=== PATIENT | female | born 1955 | race Two or more races ===

== ENCOUNTER 2017-06-29 09:07 | Emergency (ER) | payer MEDICAID ==
[~2017-06-29] VITALS: Ht 160 cm; Wt 59.4 kg
[2017-06-29 09:31] VITALS: BP 163/86
[2017-06-29] MEDS ORDERED: AMOXICILLIN500 MG ORAL (09:33)
[2017-06-29] MEDS ORDERED: CLARITIN-D 241 EACH PO (09:33)
[2017-06-29 09:50] VITALS: BP 154/86
--- NOTE | 2017-07-01 14:23 | Emergency Room Report ---
History of Present Illness General Chief Complaint: Headache Source: Patient Present Illness HPI Patient is a 61-year-old female presented after increased headache and nasal discharge. Patient reported increased sinus pressure she reported having worsening facial pain with movement. She denied current fever. As reported having yellow-green discharge from her nasal passages as well as from other locations. Allergies: Coded Allergies: No Known Allergies (Unverified , 06/29/17) Patient History Past Medical History: see triage record Reviewed Nursing Documentation: PMH: Agreed, PSxH: Agreed Nursing Documentation-PMH Past Medical History: No History, Except For Review of Systems All Other Systems: negative except mentioned in HPI Physical Exam Vital Signs Date Time Temp Pulse Resp B/P (MAP) Pulse Ox O2 Delivery O2 Flow Rate FiO2 06/29/17 09:18 97.8 77 18 163/86 99 Room Air 97.9 General Appearance: well appearing, no apparent distress, alert, GCS 15 Head: normocephalic, atraumatic ENT: hearing grossly normal, normal voice, other - facial tenderness, yellow green nasal discharge Neck: full range of motion, supple Respiratory: no respiratory distress, speaking full sentences Gastrointestinal: normal inspection, normal bowel sounds, non tender Musculoskeletal: normal inspection, back normal, no calf tenderness Neurologic: normal inspection, alert, oriented x3, normal gait Psychiatric: mood/affect normal Skin: no rash Medical Decision Making Diagnostic Impression: Primary Impression: Sinusitis ER Course Patient presented for headache. Differential diagnoses included but was not limited to skull fracture, subarachnoid hemorrhage, meningitis, aneurysm, mass lesion, sinusitis, intracranial hemorrhage. Patient has a benign exam and does not appear to require any further imaging or laboratory testing at this time. The patient presented with a sinus infection. Patient noted have purulent nasal discharge consistent with bacterial sinusitis. She she will be treated with oral antibiotics. The patient is advised to follow up with primary care doctor in 1-2 days. Patient is advised to return if any worsening condition or if any changes in status that are concerning. This report is dictated with [employer] supervisor roving software which may occasionally lead to discrepancies related to use of this software. Last Vital Signs Date Time Temp Pulse Resp B/P (MAP) Pulse Ox O2 Delivery O2 Flow Rate FiO2 06/29/17 09:50 97.9 89 18 154/86 99 Room Air 97.9 Status: improved Disposition: HOME, SELF-CARE Condition: Stable Scripts Amoxicillin* (AMOXIL*) 500 Mg Capsule 500 MG ORAL EVERY 8 HOURS, #30 CAP Prov: Marin Eden 06/29/17 Loratadine/Pseudoephedrine (CLARITIN-D 24 HOUR TABLET) 1 Each Tab.er.24h 1 TAB PO DAILY, #14 TAB Prov: Marin Eden 06/29/17 Referrals: NOT CHOSEN IPA/MD,REFERRING (PCP) Patient Instructions: Sinus Headache Marin Eden Jul 01, 2017 14:23
== END 2017-06-29 09:52 | disposition home or self-care (01) ==
LOC: EMR 09:31
DX: J32.9 Chronic sinusitis, unspecified (principal); R51 Headache
CPT/HCPCS: 99283

== ENCOUNTER → 2017-08-24 | Emergency (ER) | payer MEDICAID ==
[~2017-08-24] VITALS: Ht 160 cm; Wt 57.2 kg
[~2017-08-24] MED LIST: AMOXICILLIN500 MG ORAL; CLARITIN-D 241 EACH PO; NKM
[2017-08-24 14:08] VITALS: BP 134/86
== END | disposition left against medical advice (07) ==
LOC: EMR 14:57
DX: M54.5 Low back pain (principal)
CPT/HCPCS: 99284

== ENCOUNTER 2017-09-29 16:46 | Emergency (ER) | payer MEDICAID ==
[~2017-09-29] VITALS: Ht 160 cm; Wt 49.9 kg
[2017-09-29 17:10] VITALS: BP 141/86
--- NOTE | 2017-09-29 17:42 | Emergency Room Report ---
History of Present Illness General Chief Complaint: General Complaint Source: Patient Present Illness HPI 62 YO Female c/o Moderate nasal congestion with purulent nasal drainage 3 days. Patient reports frequent sinusitis infections. pt. also reports 6/10 in severity Left ear pain with blood on q-tip this morning. She denies ear discharge otherwise. She denies cough, sore throat or chills. Patient states she has not seen an ENT specialist. Patient reports some tenderness to the left side of her face and she feels that it has progressed to her left ear. Reports subjective fevers. Denies CP, Palpitations, LOC, AMS, dizziness, Changes in Vision, Sensation or a sudden severe headache. Allergies: Coded Allergies: No Known Allergies (Unverified , 06/29/17) Patient History Past Medical History: see triage record Past Surgical History: none Pertinent Family History: none Reviewed Nursing Documentation: PMH: Agreed; PSxH: Agreed Nursing Documentation-PMH Past Medical History: No History, Except For Review of Systems All Other Systems: negative except mentioned in HPI Physical Exam Vital Signs Date Time Temp Pulse Resp B/P (MAP) Pulse Ox O2 Delivery O2 Flow Rate FiO2 09/29/17 16:54 98.0 68 18 141/86 97 Room Air 98.1 Sp02 EP Interpretation: reviewed, normal General Appearance: no apparent distress, alert, GCS 15, non-toxic Head: normocephalic, atraumatic Eyes: bilateral eye normal inspection, bilateral eye PERRL ENT: hearing grossly normal, normal pharynx, normal voice, uvula midline, nasal congestion, other - Left OM erythematous and bulging, TTP to left maxilarry sinus area, and some frontal. Clear rhinorrhea noted with swollen turbinates. Neck: full range of motion Respiratory: chest non-tender, lungs clear, normal breath sounds, speaking full sentences Cardiovascular #1: regular rate, rhythm Rectal: deferred Genitourinary: normal inspection Musculoskeletal: back normal, gait/station normal, normal range of motion, non- tender Neurologic: alert, oriented x3, responsive, motor strength/tone normal, sensory intact, speech normal, grossly normal Psychiatric: judgement/insight normal Skin: normal color, no rash, warm/dry, well hydrated Lymphatic: no adenopathy Medical Decision Making PA Attestation Dr. angel is my supervising Physician whom patient management has been discussed with. Diagnostic Impression: Primary Impression: Otitis media Qualified Codes: H66.92 - Otitis media, unspecified, left ear Additional Impression: Nasal congestion with rhinorrhea ER Course 62 YO Female c/o Moderate nasal congestion with purulent nasal drainage 3 days. Patient reports frequent sinusitis infections. pt. also reports 6/10 in severity Left ear pain with blood on q-tip this morning. She denies ear discharge otherwise. She denies cough, sore throat or chills. Patient states she has not seen an ENT specialist. Patient reports some tenderness to the left side of her face and she feels that it has progressed to her left ear. Reports subjective fevers. Denies CP, Palpitations, LOC, AMS, dizziness, Changes in Vision, Sensation or a sudden severe headache. Ddx considered but are not limited to OM, OE, mastoiditis, TM perforation, FB, sinusitis Vital signs: are WNL, pt. is afebrile H&PE are most consistent with otitis media ORDERS: none required at this time, the diagnosis is clinical -OTOSCOPY: Left OM erythematous and bulging. ED INTERVENTIONS: None required at this time. DISCHARGE: At this time pt. is stable for d/c to home. With PO ABX. Will provide printed patient care instructions, and any necessary prescriptions. Care plan and follow up instructions have been discussed with the patient prior to discharge. Last Vital Signs Date Time Temp Pulse Resp B/P (MAP) Pulse Ox O2 Delivery O2 Flow Rate FiO2 09/29/17 17:10 98.1 78 18 141/86 97 Room Air 98.1 Disposition: HOME, SELF-CARE Condition: Stable Scripts Loratadine (CLARITIN) 10 Mg Capsule 10 MG ORAL DAILY, #10 CAP Prov: Janet Parsons 09/29/17 Oxymetazoline Hcl* (AFRIN*) 15 Ml Mist 2 SPRAYS NASAL TWICE A DAY, #15 ML 0 Refills DO NOT USE FOR MORE THAN 3 CONSECUTIVE DAYS. Prov: Janet Parsons 09/29/17 Amoxicillin/Potassium Clav 875-125* (AUGMENTIN 875-125 TABLET*) 1 Each Tablet 1 TAB ORAL TWICE A DAY for 7 Days, #14 TAB Prov: Janet Parsons 09/29/17 Patient Instructions: Otitis Media, Adult, [id number] Additional Instructions: Take medications as directed. Follow up with an ENT even if your symptoms have resolved. --Please review list of primary care clinics, if you do not already have a primary care provider Return sooner to ED if new symptoms occur, or current symptoms become worse. - Please note that this Emergency Department Report was dictated using [employer] coordinator technology software, occasionally this can lead to erroneous entry secondary to interpretation by the dictation equipment. Janet Parsons September 29, 2017 17:42
[2017-09-29] MEDS ORDERED: AFRIN15 ML NASAL (17:44)
[2017-09-29] MEDS ORDERED: AUGMENTIN 875-1 EAC1 ORAL (17:44)
[2017-09-29] MEDS ORDERED: CLARITIN10 M2 ORAL (17:44)
[2017-09-29 18:34] VITALS: BP 141/86
== END 2017-09-29 18:37 | disposition home or self-care (01) ==
LOC: EMR 17:46
DX: H66.92 Otitis media, unspecified, left ear (principal); R09.81 Nasal congestion; J34.89 Other specified disorders of nose and nasal sinuses
CPT/HCPCS: 99284

== ENCOUNTER 2018-02-25 11:42 | Emergency (ER) | payer MEDICAID ==
[~2018-02-25] VITALS: Ht 160 cm; Wt 54.4 kg
[~2018-02-25 11:42] MED LIST changes: +AFRIN15 ML NASAL; +AUGMENTIN 875-1 EAC1 ORAL; +CLARITIN10 M2 ORAL
[2018-02-25 11:57] VITALS: BP 113/93
--- NOTE | 2018-02-25 12:09 | Emergency Room Report ---
History of Present Illness General Chief Complaint: General Complaint Source: Patient Present Illness HPI Patient presents with complaints of dizziness Patient reports that she has had vertigo before this is fairly similar to those episodes She is prone to bladder infections the patient reports also was having foul- smelling urine Denies any chest pain denies any palpitations denies any vomiting or diarrhea Allergies: Coded Allergies: No Known Allergies (Unverified , 06/29/17) Patient History Past Medical History: see triage record Pertinent Family History: none Reviewed Nursing Documentation: PMH: Agreed; PSxH: Agreed Nursing Documentation-PMH Past Medical History: No History, Except For History Of Psychiatric Problem: Yes - depression Review of Systems All Other Systems: negative except mentioned in HPI Physical Exam Vital Signs Date Time Temp Pulse Resp B/P (MAP) Pulse Ox O2 Delivery O2 Flow Rate FiO2 02/25/18 11:50 98.2 68 16 112/66 98 Room Air 98.2 Sp02 EP Interpretation: reviewed, normal General Appearance: well appearing, no apparent distress Head: normocephalic, atraumatic Eyes: bilateral eye PERRL, bilateral eye EOMI ENT: hearing grossly normal, normal pharynx, TMs + canals normal, uvula midline Neck: full range of motion, supple, no meningismus, no bony tend Respiratory: lungs clear, normal breath sounds, no rhonchi, no respiratory distress, no retraction, no accessory muscle use Cardiovascular #1: normal peripheral pulses, regular rate, rhythm, no edema, no gallop, no JVD, no murmur Gastrointestinal: normal bowel sounds, non tender, soft, no mass, no organomegaly, non-distended, no guarding, no hernia, no pulsatile mass, no rebound Genitourinary: no CVA tenderness Musculoskeletal: normal inspection Neurologic: oriented x3, responsive, cutter apprentice hand III-XII nml as tested, motor strength/ tone normal, sensory intact Psychiatric: mood/affect normal Skin: normal color, no rash, warm/dry, palpation normal Lymphatic: normal inspection, no adenopathy Medical Decision Making Diagnostic Impression: Primary Impression: Dizziness Additional Impression: UTI (urinary tract infection) ER Course Patient presents with complaints consistent with likely bladder infection however given some of the dizziness baseline blood work was also initiated Patient's hemoglobin is normal electrolytes appropriate patient does have evidence of UTI on laboratory examination Patient is provided with appropriate medication and will have initial conservative outpatient trial At this time patient does not meet emergency criteria for head imaging Labs Test 02/25/18 12:05 02/25/18 12:16 Urine Color Yellow Urine Appearance Slightly cloudy Urine pH 5 (4.5-8.0) Urine Specific [place] 1.025 (1.005-1.035) Urine Protein 1+ (NEGATIVE) Urine Glucose (UA) Negative (NEGATIVE) Urine Ketones Negative (NEGATIVE) Urine Blood 1+ (NEGATIVE) Urine Nitrite Negative (NEGATIVE) Urine Bilirubin Negative (NEGATIVE) Urine Urobilinogen Normal MG/DL (0.0-1.0) Urine Leukocyte Esterase 3+ (NEGATIVE) Urine RBC 0-2 /HPF (0 - 2) Urine WBC 10-15 /HPF (0 - 2) Urine Squamous Epithelial Cells Occasional /LPF Urine Bacteria Moderate /HPF (NONE) White Blood Count 7.0 K/UL (4.8-10.8) Red Blood Count 4.98 M/UL (4.20-5.40) Hemoglobin 14.8 G/DL (12.0-16.0) Hematocrit 44.5 % (37.0-47.0) Mean Corpuscular Volume 89 FL (80-99) Mean Corpuscular Hemoglobin 29.7 PG (27.0-31.0) Mean Corpuscular Hemoglobin Concent 33.3 G/DL (32.0-36.0) Red Cell Distribution Width 11.3 % (11.6-14.8) Platelet Count 282 K/UL (150-450) Mean Platelet Volume 7.8 FL (6.5-10.1) Neutrophils (%) (Auto) 63.7 % (45.0-75.0) Lymphocytes (%) (Auto) 26.8 % (20.0-45.0) Monocytes (%) (Auto) 6.5 % (1.0-10.0) Eosinophils (%) (Auto) 2.3 % (0.0-3.0) Basophils (%) (Auto) 0.8 % (0.0-2.0) Sodium Level 142 MMOL/L (136-145) Potassium Level 3.6 MMOL/L (3.5-5.1) Chloride Level 107 MMOL/L (98-107) Carbon Dioxide Level 25 MMOL/L (21-32) Anion Gap 10 mmol/L (5-15) Blood Urea Nitrogen 15 mg/dL (7-18) Creatinine 0.8 MG/DL (0.55-1.30) Estimat Glomerular Filtration Rate > 60 mL/min (>60) Glucose Level 125 MG/DL (74-106) Calcium Level 8.9 MG/DL (8.5-10.1) Last Vital Signs Date Time Temp Pulse Resp B/P (MAP) Pulse Ox O2 Delivery O2 Flow Rate FiO2 02/25/18 11:50 98.2 68 16 112/66 98 Room Air 98.2 Status: improved Disposition: HOME, SELF-CARE Condition: Improved Scripts Meclizine Hcl* (MECLIZINE*) 25 Mg Tablet 25 MG ORAL THREE TIMES A DAY for 7 Days, TAB Prov: Amandeep Lou DO 02/25/18 Phenazopyridine Hcl* (PYRIDIUM*) 100 Mg Tablet 100 MG ORAL THREE TIMES A DAY for 3 Days, TAB Prov: Amandeep Lou DO 02/25/18 Nitrofurantoin Monohyd/M-Cryst* (MACROBID 100 MG*) 100 Mg Capsule 100 MG ORAL EVERY 12 HOURS for 7 Days, CAP Prov: Amandeep Lou DO 02/25/18 Additional Instructions: Patient is provided with the discharge instructions notified to follow up with primary doctor in the next 2-3 days otherwise return to the er with any worsening symptoms. Please note that this report is being documented using [employer] technology. This can lead to erroneous entry secondary to incorrect interpretation by the dictating instrument. Amandeep Lou DO Feb 25, 2018 12:09
[2018-02-25 12:28] VITALS: BP 129/67
[2018-02-25 12:33] LABS: BASOPHILS % (AUTO) 0.8 % (0.0-2.0); EOSINOPHILS % (AUTO) 2.3 % (0.0-3.0); HEMATOCRIT 44.5 % (37.0-47.0); HEMOGLOBIN 14.8 G/DL (12.0-16.0); LYMPHOCYTES % (AUTO) 26.8 % (20.0-45.0); MEAN CORPUSCULAR VOLUME 89 FL (80-99); MONOCYTES % (AUTO) 6.5 % (1.0-10.0); NEUTROPHILS % (AUTO) 63.7 % (45.0-75.0); PLATELET COUNT 282 K/UL (150-450); RED BLOOD COUNT 4.98 M/UL (4.20-5.40); RED CELL DISTRIBUTION WIDTH 11.3 % (11.6-14.8)
[2018-02-25 12:34] LABS: BILIRUBIN, URINE NEGATIVE (NEGATIVE); GLUCOSE, URINE (UA) NEGATIVE (NEGATIVE); KETONES,URINE NEGATIVE (NEGATIVE); LEUKOCYTE ESTERASE ,URINE 3+ (NEGATIVE); NITRITE,URINE NEGATIVE (NEGATIVE); PH,URINE 5 (4.5-8.0); PROTEIN,URINE 1+ (NEGATIVE); UROBILINOGEN,URINE NORMAL MG/DL (0.0-1.0)
[2018-02-25 12:35] LABS: COLOR,URINE YELLOW
[2018-02-25 12:36] LABS: APPEARANCE,URINE SLIGHTLY CLOUDY
[2018-02-25 12:38] LABS: ANION GAP 10 mmol/L (5-15); BLOOD UREA NITROGEN 15 mg/dL (7-18); CALCIUM 8.9 MG/DL (8.5-10.1); CARBON DIOXIDE 25 MMOL/L (21-32); CHLORIDE 107 MMOL/L (98-107); CREATININE 0.8 MG/DL (0.55-1.30); POTASSIUM 3.6 MMOL/L (3.5-5.1); SODIUM 142 MMOL/L (136-145)
[2018-02-25 12:43] LABS: ALANINE AMINOTRANSFERASE 22 U/L (12-78); ALBUMIN 3.5 G/DL (3.4-5.0); ALKALINE PHOSPHATASE 71 U/L (46-116); ASPARTATE AMINO TRANSFERASE 14 U/L (15-37); BILIRUBIN,TOTAL 0.5 MG/DL (0.2-1.0)
[2018-02-25] MEDS ORDERED: MECLIZINE HCL25 MG ORAL (12:51)
[2018-02-25] MEDS ORDERED: PHENAZOPYRIDIN100 MG ORAL (12:51)
[2018-02-25] MEDS ORDERED: NITROFURANTOIN100 M2 ORAL (12:51)
[2018-02-25 13:19] VITALS: BP 122/88
== END 2018-02-25 13:19 | disposition home or self-care (01) ==
LOC: EMR 12:22
DX: N39.0 Urinary tract infection, site not specified (principal); R42 Dizziness and giddiness
CPT/HCPCS: 36415; 80053; 80307; 81003; 85025; 87086; 99284

== ENCOUNTER 2018-05-22 12:01 | Emergency (ER) | payer MEDICAID ==
[~2018-05-22] VITALS: Ht 160 cm; Wt 59.0 kg
[~2018-05-22 12:01] MED LIST changes: +MECLIZINE HCL25 MG ORAL; +NITROFURANTOIN100 M2 ORAL; +PHENAZOPYRIDIN100 MG ORAL
[2018-05-22 12:16] VITALS: BP 145/77
[2018-05-22 12:28] LABS: APPEARANCE,URINE CLEAR; BILIRUBIN, URINE NEGATIVE (NEGATIVE); GLUCOSE, URINE (UA) NEGATIVE (NEGATIVE); KETONES,URINE 1+ (NEGATIVE); LEUKOCYTE ESTERASE ,URINE 3+ (NEGATIVE); NITRITE,URINE NEGATIVE (NEGATIVE); PH,URINE 5 (4.5-8.0); PROTEIN,URINE 1+ (NEGATIVE); UROBILINOGEN,URINE NORMAL MG/DL (0.0-1.0)
[2018-05-22] MEDS ORDERED: Phenazopyridine 200mg tab ORAL ONE (12:30)
[2018-05-22 12:42] LABS: COLOR,URINE YELLOW
[2018-05-22 12:47] LABS: EOSINOPHILS % (AUTO) 1.4 % (0.0-3.0); HEMATOCRIT 45.3 % (37.0-47.0); LYMPHOCYTES % (AUTO) 26.9 % (20.0-45.0); MEAN CORPUSCULAR VOLUME 91 FL (80-99); MONOCYTES % (AUTO) 7.9 % (1.0-10.0); NEUTROPHILS % (AUTO) 62.8 % (45.0-75.0); PLATELET COUNT 296 K/UL (150-450); RED BLOOD COUNT 4.97 M/UL (4.20-5.40); RED CELL DISTRIBUTION WIDTH 11.8 % (11.6-14.8); WHITE BLOOD COUNT 6.8 K/UL (4.8-10.8)
--- NOTE | 2018-05-22 13:11 | Emergency Room Report ---
History of Present Illness General Chief Complaint: Female Urogenital Problems Source: Patient Present Illness HPI 62-year-old female presents to the emergency department complaining of 10 out of 10 in severity dysuria as well as urinary frequency. Patient reports also that she has had sinus congestion times one week with intermittent episodes of some dizziness. Patient denies dizziness today. Patient denies nausea, vomiting, fevers, chills, neck pain or stiffness. Patient denies trauma or fall. She denies abdominal pain or tenderness. Allergies: Coded Allergies: No Known Allergies (Unverified , 05/22/18) Patient History Past Medical History: see triage record Past Surgical History: none Pertinent Family History: none Reviewed Nursing Documentation: PMH: Agreed; PSxH: Agreed Nursing Documentation-PMH Past Medical History: No Stated History Review of Systems All Other Systems: negative except mentioned in HPI Physical Exam Vital Signs Date Time Temp Pulse Resp B/P (MAP) Pulse Ox O2 Delivery O2 Flow Rate FiO2 05/22/18 12:05 98.2 75 16 144/87 99 Room Air Sp02 EP Interpretation: reviewed, normal General Appearance: no apparent distress, alert, GCS 15, non-toxic Head: normocephalic, atraumatic Eyes: bilateral eye normal inspection, bilateral eye PERRL ENT: hearing grossly normal, normal voice, TMs + canals normal, uvula midline, moist mucus membranes, nasal congestion Neck: full range of motion Respiratory: chest non-tender, lungs clear, normal breath sounds, speaking full sentences Cardiovascular #1: regular rate, rhythm Gastrointestinal: normal bowel sounds, non tender, soft, non-distended Rectal: deferred Genitourinary: normal inspection, no CVA tenderness Musculoskeletal: back normal, gait/station normal, normal range of motion, non- tender Neurologic: alert, oriented x3, responsive, motor strength/tone normal, sensory intact, normal gait, speech normal, no pronator, other - no nystagmus or ataxia, grossly normal Psychiatric: judgement/insight normal Skin: normal color, no rash, warm/dry, well hydrated Medical Decision Making PA Attestation Dr. angel is my supervising Physician whom patient management has been discussed with. Diagnostic Impression: Primary Impression: UTI (urinary tract infection) Qualified Codes: N30.01 - Acute cystitis with hematuria Additional Impression: Sinusitis Qualified Codes: J32.1 - Chronic frontal sinusitis ER Course 62-year-old female presents to the emergency department complaining of 10 out of 10 in severity dysuria as well as urinary frequency. Patient reports also that she has had sinus congestion times one week with intermittent episodes of some dizziness. Patient denies dizziness today. Patient denies nausea, vomiting, fevers, chills, neck pain or stiffness. Patient denies trauma or fall. She denies abdominal pain or tenderness. Ddx considered but are not limited to UTi , Pyelo, STI, Stone, Cystitis, sinusitis, vertigo, cardiac etiology, CVA just to name a few. Vital signs: are WNL, pt. is afebrile H&PE are most consistent with UTI -No focal neurological deficits, no dizziness at this time. ORDERS: - UA labs are attached ---Evidence of infection. ED INTERVENTIONS: None required at this time. DISCHARGE: At this time pt. is stable for d/c to home. Will provide printed patient care instructions, and any necessary prescriptions. Care plan and follow up instructions have been discussed with the patient prior to discharge. Labs Test 05/22/18 12:10 05/22/18 12:35 Urine Color Yellow Urine Appearance Clear Urine pH 5 (4.5-8.0) Urine Specific [place] 1.025 (1.005-1.035) Urine Protein 1+ (NEGATIVE) Urine Glucose (UA) Negative (NEGATIVE) Urine Ketones 1+ (NEGATIVE) Urine Blood 2+ (NEGATIVE) Urine Nitrite Negative (NEGATIVE) Urine Bilirubin Negative (NEGATIVE) Urine Urobilinogen Normal MG/DL (0.0-1.0) Urine Leukocyte Esterase 3+ (NEGATIVE) Urine RBC 5-10 /HPF (0 - 2) Urine WBC 15-20 /HPF (0 - 2) Urine Squamous Epithelial Cells Few /LPF (NONE/OCC) Urine Bacteria Moderate /HPF (NONE) White Blood Count 6.8 K/UL (4.8-10.8) Red Blood Count 4.97 M/UL (4.20-5.40) Hemoglobin 15.0 G/DL (12.0-16.0) Hematocrit 45.3 % (37.0-47.0) Mean Corpuscular Volume 91 FL (80-99) Mean Corpuscular Hemoglobin 30.1 PG (27.0-31.0) Mean Corpuscular Hemoglobin Concent 33.0 G/DL (32.0-36.0) Red Cell Distribution Width 11.8 % (11.6-14.8) Platelet Count 296 K/UL (150-450) Mean Platelet Volume 7.9 FL (6.5-10.1) Neutrophils (%) (Auto) 62.8 % (45.0-75.0) Lymphocytes (%) (Auto) 26.9 % (20.0-45.0) Monocytes (%) (Auto) 7.9 % (1.0-10.0) Eosinophils (%) (Auto) 1.4 % (0.0-3.0) Basophils (%) (Auto) 1.0 % (0.0-2.0) Sodium Level 139 MMOL/L (136-145) Potassium Level 3.6 MMOL/L (3.5-5.1) Chloride Level 105 MMOL/L (98-107) Carbon Dioxide Level 27 MMOL/L (21-32) Anion Gap 8 mmol/L (5-15) Blood Urea Nitrogen 16 mg/dL (7-18) Creatinine 0.9 MG/DL (0.55-1.30) Estimat Glomerular Filtration Rate > 60 mL/min (>60) Glucose Level 104 MG/DL (74-106) Calcium Level 9.5 MG/DL (8.5-10.1) Total Bilirubin 0.5 MG/DL (0.2-1.0) Aspartate Amino Transf (AST/SGOT) 14 U/L (15-37) Alanine Aminotransferase (ALT/SGPT) 23 U/L (12-78) Alkaline Phosphatase 70 U/L (46-116) Total Protein 7.6 G/DL (6.4-8.2) Albumin 3.9 G/DL (3.4-5.0) Globulin 3.7 g/dL Albumin/Globulin Ratio 1.1 (1.0-2.7) Last Vital Signs Date Time Temp Pulse Resp B/P (MAP) Pulse Ox O2 Delivery O2 Flow Rate FiO2 05/22/18 12:16 98.2 65 14 145/77 98 Room Air Disposition: HOME, SELF-CARE Condition: Stable Scripts Fluticasone Propionate (Fluticasone Propionate) 16 Gm [place].susp 1 SPRAY NASAL TWICE A DAY, #16 EA per nostril Prov: Janet Parsons 05/22/18 Cetirizine Hcl/Pseudoephedrine (ZYRTEC-D TABLET) 1 Each Tab.er.12h 1 EACH ORAL Q12HR for 7 Days, #14 TAB Prov: Janet Parsons 05/22/18 Phenazopyridine Hcl* (PYRIDIUM*) 200 Mg Tablet 200 MG ORAL THREE TIMES A DAY, #9 TAB 0 Refills Prov: Janet Parsons 05/22/18 Trimethoprim/Sulfamethoxazole 160/800* (BACTRIM DS TABLET*) 1 Each Tablet 1 TAB ORAL TWICE A DAY for 7 Days, #14 TAB Prov: Janet Parsons 05/22/18 Patient Instructions: Urinary Tract Infection Additional Instructions: Take medications as directed. Pyridium will cause your urine to change color (Red/[place]), this is a normal side effect of the medication. Follow up with a Primary Care Provider in 3-5 days, even if your symptoms have resolved. --Please review list of primary care clinics, if you do not already have a primary care provider Return sooner to ED if new symptoms occur, or current symptoms become worse. - Please note that this Emergency Department Report was dictated using [employer] operator technology software, occasionally this can lead to erroneous entry secondary to interpretation by the dictation equipment. Janet Parsons May 22, 2018 13:11
[2018-05-22] MEDS ORDERED: BACTRIM DS TAB1 EAC1 ORAL (13:16)
[2018-05-22] MEDS ORDERED: PHENAZOPYRIDIN200 MG ORAL (13:16)
[2018-05-22] MEDS ORDERED: ZYRTEC-D TABLE1 EACH ORAL (13:16)
[2018-05-22] MEDS ORDERED: FLONASE1 SPRAYS NASAL (13:16)
[2018-05-22 13:17] LABS: ANION GAP 8 mmol/L (5-15); BLOOD UREA NITROGEN 16 mg/dL (7-18); CALCIUM 9.5 MG/DL (8.5-10.1); CARBON DIOXIDE 27 MMOL/L (21-32); CHLORIDE 105 MMOL/L (98-107); CREATININE 0.9 MG/DL (0.55-1.30); POTASSIUM 3.6 MMOL/L (3.5-5.1); SODIUM 139 MMOL/L (136-145)
[2018-05-22 13:24] VITALS: BP 120/87
[2018-05-22 13:25] LABS: ALANINE AMINOTRANSFERASE 23 U/L (12-78); ALBUMIN 3.9 G/DL (3.4-5.0); ALBUMIN/GLOBULIN RATIO 1.1 (1.0-2.7); ALKALINE PHOSPHATASE 70 U/L (46-116); ASPARTATE AMINO TRANSFERASE 14 U/L (15-37); BILIRUBIN,TOTAL 0.5 MG/DL (0.2-1.0)
== END 2018-05-22 13:24 | disposition home or self-care (01) ==
LOC: EMR 13:17
DX: N30.01 Acute cystitis with hematuria (principal); J32.1 Chronic frontal sinusitis
CPT/HCPCS: 36415; 80053; 81003; 85025; 87086; 99283

== ENCOUNTER 2018-08-01 14:53 | Emergency (ER) | payer MEDICAID ==
[~2018-08-01] VITALS: Ht 154.9 cm; Wt 54.4 kg
[~2018-08-01 14:53] MED LIST changes: +BACTRIM DS TAB1 EAC1 ORAL; +FLONASE1 SPRAYS NASAL; +PHENAZOPYRIDIN200 MG ORAL; +ZYRTEC-D TABLE1 EACH ORAL
--- NOTE | 2018-08-01 15:06 | NUR ---
ED Nurse Note: Pt came into the ER w/ complaints of RUQ abdominal pain x 3 days. Pt is rating the pain a 8/10. non radiating. Pt is A + O x4. Ambulatory. Skin warm to touch.
[2018-08-01 15:07] VITALS: BP 119/103
--- NOTE | 2018-08-01 15:20 | Emergency Room Report ---
History of Present Illness General Chief Complaint: Pain Source: Patient Present Illness HPI 62-year-old female p/w right-sided chest pain for 3 days. Chest pain started after moving a lot of things in the house. Also her thinks that their dog may have run into her right chest.. Localized to substernal area, no radiation to back or other areas, sharp in nature, gradual in onset, multiple episodes. Worsens with taking a deep breath. Denies palpitations, diaphoresis, n/v. This is the first occurrence of chest pain. No history of DVT or PE in the past. No recent travel immobilizations or surgeries. No calf pain. Denies fever, chills, cough, abd pain. Patient has never had a stress test. Patient has never had a cardiac catheterization. Denies smoking, no family history of cardiac disease at a young age. Allergies: Coded Allergies: No Known Allergies (Unverified , 05/22/18) Patient History Past Medical History: see triage record Past Surgical History: none Pertinent Family History: none Last Menstrual Period: menopause Reviewed Nursing Documentation: PMH: Agreed; PSxH: Agreed Nursing Documentation-PMH Past Medical History: No Stated History Review of Systems All Other Systems: negative except mentioned in HPI Physical Exam Vital Signs Date Time Temp Pulse Resp B/P (MAP) Pulse Ox O2 Delivery O2 Flow Rate FiO2 08/01/18 14:56 98.1 55 16 127/68 97 Room Air Sp02 EP Interpretation: reviewed, normal General Appearance: alert, GCS 15, non-toxic, mild distress Head: normocephalic, atraumatic Eyes: bilateral eye normal inspection, bilateral eye PERRL, bilateral eye EOMI ENT: normal ENT inspection, normal pharynx, normal voice, moist mucus membranes Neck: normal inspection, full range of motion, supple Respiratory: normal inspection, lungs clear, normal breath sounds, no respiratory distress, no retraction, no wheezing, speaking full sentences, chest symmetrical Cardiovascular #1: normal inspection, regular rate, rhythm, no edema, normal capillary refill Cardiovascular #2: 2+ radial (R), 2+ radial (L) Gastrointestinal: normal inspection, non tender, soft, non-distended, no guarding Musculoskeletal: back normal, normal range of motion, other - Right-sided chest wall tenderness Neurologic: normal inspection, alert, oriented x3, responsive, motor strength/ tone normal, sensory intact, normal gait, speech normal Psychiatric: normal inspection, judgement/insight normal, memory normal Skin: normal inspection, normal color, no rash, warm/dry, well hydrated, normal turgor Medical Decision Making Diagnostic Impression: Primary Impression: Chest wall pain ER Course 62-year-old female p/w CP DDX: Musculoskeletal is most likely at this point as it is worse with twisting motion at getting up. But will rule out ACS vs. CHF vs. pneumonia vs. gastritis /GERD vs. pneumothorax PE on differential however at this time there are other more likely diagnoses. Patient is also noted to have a rash in the right breast, patient is told that she must follow this up with her PCP, and also schedule her preventative mammograms. Plan: IV access, obtain labs including troponin, EKG, CXR ER course: Labs: troponin negative Patient remained chest pain free during ED stay. trop is neg x 2 she is symptomatic with dysuria -- ceftriaxone given she feels a lot better with toradol given - no further CP Disposition: *HEART score = 1 pt indicated low risk for major acute cardiac event. Patient will be discharged to home. Strict precautions discussed with patient on when to emergently return to the ED : this includes worsening/severe chest pain, palpitations, shortness of breath, syncopal episodes, fever or chills, which may indicate severe illness. Patient verbalized understanding. Patient instructed to follow up with their PMD within the next 2 days. Patient also instructed to follow up with a biometrics experimentalist within 2 days for possible outpatient stress test. Patient agrees with plan. Please note that this Emergency Department Report was dictated using [employer] technology software, occasionally this can lead to erroneous entry secondary to interpretation by the dictation equipment. EKG Diagnostic Results EP Interpretation: Yes Rate: 54 Rhythm: NSR ST Segments: No acute changes ASA given to patient: y Rhythm Strip EP Interpretation: Yes Rate: 60 Rhythm: NSR, no PVCs, no ectopy Chest X-ray CXR: Ordered: Yes 1 view Indication: Chest pain EP interpretation: Yes Interpretation: No consolidation, no effusion, no PTX, no acute cardiopulmonary disease Impression: No acute disease Electronically signed by Ron Schumacher MD Laboratory Tests Test 08/01/18 15:20 White Blood Count 8.7 K/UL (4.8-10.8) Red Blood Count 4.78 M/UL (4.20-5.40) Hemoglobin 14.3 G/DL (12.0-16.0) Hematocrit 44.3 % (37.0-47.0) Mean Corpuscular Volume 93 FL (80-99) Mean Corpuscular Hemoglobin 29.9 PG (27.0-31.0) Mean Corpuscular Hemoglobin Concent 32.2 G/DL (32.0-36.0) Red Cell Distribution Width 12.1 % (11.6-14.8) Platelet Count 245 K/UL (150-450) Mean Platelet Volume 7.6 FL (6.5-10.1) Neutrophils (%) (Auto) 67.7 % (45.0-75.0) Lymphocytes (%) (Auto) 25.1 % (20.0-45.0) Monocytes (%) (Auto) 5.8 % (1.0-10.0) Eosinophils (%) (Auto) 0.6 % (0.0-3.0) Basophils (%) (Auto) 0.8 % (0.0-2.0) Urine Color Nina Urine Appearance Slightly cloudy Urine pH 5 (4.5-8.0) Urine Specific [place] 1.030 (1.005-1.035) Urine Protein Negative (NEGATIVE) Urine Glucose (UA) Negative (NEGATIVE) Urine Ketones Negative (NEGATIVE) Urine Blood 1+ (NEGATIVE) H Urine Nitrite Negative (NEGATIVE) Urine Bilirubin Negative (NEGATIVE) Urine Ictotest Negative (NEGATIVE) Urine Urobilinogen Normal MG/DL (0.0-1.0) Urine Leukocyte Esterase 2+ (NEGATIVE) H Urine RBC 0-2 /HPF (0 - 2) Urine WBC 5-10 /HPF (0 - 2) H Urine Squamous Epithelial Cells Many /LPF (NONE/OCC) H Urine Amorphous Sediment Moderate /LPF (NONE) H Urine Bacteria Moderate /HPF (NONE) H Sodium Level 145 MMOL/L (136-145) Potassium Level 3.4 MMOL/L (3.5-5.1) L Chloride Level 107 MMOL/L (98-107) Carbon Dioxide Level 30 MMOL/L (21-32) Anion Gap 8 mmol/L (5-15) Blood Urea Nitrogen 13 mg/dL (7-18) Creatinine 0.9 MG/DL (0.55-1.30) Estimate Glomerular Filtration Rate > 60 mL/min (>60) Glucose Level 96 MG/DL (74-106) Calcium Level 9.5 MG/DL (8.5-10.1) Total Bilirubin 0.3 MG/DL (0.2-1.0) Aspartate Amino Transferase (AST) 11 U/L (15-37) L Alanine Aminotransferase (ALT) 20 U/L (12-78) Alkaline Phosphatase 66 U/L (46-116) Troponin I 0.007 ng/mL (0.000-0.056) Pro-B-Type Natriuretic Peptide 74 pg/mL (0-125) Total Protein 7.0 G/DL (6.4-8.2) Albumin 3.6 G/DL (3.4-5.0) Globulin 3.4 g/dL Albumin/Globulin Ratio 1.1 (1.0-2.7) Last Vital Signs Date Time Temp Pulse Resp B/P (MAP) Pulse Ox O2 Delivery O2 Flow Rate FiO2 08/01/18 15:07 98.2 49 14 119/103 99 Room Air Disposition: HOME, SELF-CARE Condition: Stable Scripts Cefuroxime Axetil* (CEFUROXIME*) 500 Mg Tablet 500 MG PO Q12HR for 7 Days, #14 TAB Prov: oRn Schumacher M.D. 08/01/18 Ron Schumacher M.D. Aug 01, 2018 15:20
--- NOTE | 2018-08-01 15:29 | NUR ---
ED Nurse Note: Xray at the bedside.
[2018-08-01] MEDS ORDERED: Aspirin Baby 81mg ORAL ONE (15:30)
[2018-08-01] MEDS ORDERED: Ketorolac 30mg Inj IV ONE (15:30)
[2018-08-01 16:09] LABS: APPEARANCE,URINE SLIGHTLY CLOUDY; BILIRUBIN, URINE NEGATIVE (NEGATIVE); COLOR,URINE AMBER; GLUCOSE, URINE (UA) NEGATIVE (NEGATIVE); KETONES,URINE NEGATIVE (NEGATIVE); LEUKOCYTE ESTERASE ,URINE 2+ (NEGATIVE); NITRITE,URINE NEGATIVE (NEGATIVE); PH,URINE 5 (4.5-8.0); PROTEIN,URINE NEGATIVE (NEGATIVE); UROBILINOGEN,URINE NORMAL MG/DL (0.0-1.0)
[2018-08-01 16:16] LABS: BASOPHILS % (AUTO) 0.8 % (0.0-2.0); EOSINOPHILS % (AUTO) 0.6 % (0.0-3.0); HEMATOCRIT 44.3 % (37.0-47.0); HEMOGLOBIN 14.3 G/DL (12.0-16.0); LYMPHOCYTES % (AUTO) 25.1 % (20.0-45.0); MEAN CORPUSCULAR VOLUME 93 FL (80-99); MONOCYTES % (AUTO) 5.8 % (1.0-10.0); NEUTROPHILS % (AUTO) 67.7 % (45.0-75.0); PLATELET COUNT 245 K/UL (150-450); RED BLOOD COUNT 4.78 M/UL (4.20-5.40); RED CELL DISTRIBUTION WIDTH 12.1 % (11.6-14.8); WHITE BLOOD COUNT 8.7 K/UL (4.8-10.8)
[2018-08-01 16:17] LABS: ANION GAP 8 mmol/L (5-15); BLOOD UREA NITROGEN 13 mg/dL (7-18); CALCIUM 9.5 MG/DL (8.5-10.1); CARBON DIOXIDE 30 MMOL/L (21-32); CHLORIDE 107 MMOL/L (98-107); CREATININE 0.9 MG/DL (0.55-1.30); POTASSIUM 3.4 MMOL/L (3.5-5.1); SODIUM 145 MMOL/L (136-145)
[2018-08-01 16:28] LABS: ALANINE AMINOTRANSFERASE 20 U/L (12-78); ALBUMIN 3.6 G/DL (3.4-5.0); ALBUMIN/GLOBULIN RATIO 1.1 (1.0-2.7); ALKALINE PHOSPHATASE 66 U/L (46-116); ASPARTATE AMINO TRANSFERASE 11 U/L (15-37); BILIRUBIN,TOTAL 0.3 MG/DL (0.2-1.0)
[2018-08-01] MEDS ORDERED: cefTRIAXone 1 GM in NS 55 ML IVPB ONE (17:00)
[2018-08-01] MEDS ORDERED: CEFUROXIME500 MG PO (17:20)
--- NOTE | 2018-08-01 17:20 | NUR ---
ED Nurse Note: Second Troponin level sent to lab.
[2018-08-01 17:26] VITALS: BP 138/72
[2018-08-01 18:18] VITALS: BP 104/62
--- NOTE | 2018-08-01 18:19 | NUR ---
ER DISCHARGE NOTE: Patient is cleared to be discharged per ERMD, pt is aox4, on room air, with stable vital signs. pt was given dc and prescription instructions, pt was able to verbalize understanding, pt id band and iv site removed without complications. pt is able to ambulate with steady gait. pt took all belongings.
--- NOTE | 2018-08-01 19:17 | Diagnostic Imaging Report ---
Indication: Dyspnea Comparison: None A single view chest radiograph was obtained. Findings: Cardiomediastinal appearance is within normal limits for age. The lungs are clear. Pulmonary vascularity is appropriate. The diaphragmatic contour is smooth and costophrenic angles are sharp. No pleural effusions are identified. The bones are unremarkable. Impression: No acute findings
--- NOTE | 2018-08-02 14:58 | Cardiology Report ---
APPROVED REPORT EKG Measurement Heart [id number] Sinus bradycardia Left axis deviation Anterior infarct, age undetermined Abnormal ECG
== END 2018-08-01 18:19 | disposition home or self-care (01) ==
LOC: EMR 16:02
DX: R07.89 Other chest pain (principal)
CPT/HCPCS: 36415; 71045; 80053; 81003; 83880; 84484; 85025; 87086; 93005; 96365; 96375; 99284; J0696; J1885